=== PATIENT | female | born 1975 | race African-American/Black ===

== ENCOUNTER 2022-03-20 04:30 | Day surgery (SDC) | payer OTHER ==
[~2022-03-20] VITALS: Ht 167.6 cm; Wt 105.2 kg
== END 2022-03-20 12:15 | disposition home or self-care (01) ==
LOC: CIR.AMB 04:30
PROVIDERS: ATTEND Specialist
DX: K80.10 Calculus of gallbladder with chronic cholecystitis without obstruction (principal); Z20.822 Contact with and (suspected) exposure to COVID-19; Z88.6 Allergy status to analgesic agent